=== PATIENT | male | born 1975 | race Caucasian/White ===

== ENCOUNTER 2018-01-31 14:33 | Emergency (ER) | payer SELFPAY ==
[~2018-01-31] VITALS: Ht 170.2 cm; Wt 75.0 kg
[2018-01-31 15:06] LABS: BASOPHILS % 0.5 % (0.0-2.0); EOSINOPHILS % 1.7 % (0.0-5.0); HEMATOCRIT. 42.7 % (42.0-52.0); HEMOGLOBIN. 14.8 g/dL (14.0-18.0); MEAN CORPUSCULAR HEMOGLOBIN 30.9 pg (28.0-32.0); MEAN CORPUSCULAR VOLUME 89.2 fL (80.0-94.0); MEAN PLATELET VOLUME 9.3 fl (7.4-10.4); MONOCYTES % 9.4 % (2.0-8.0); NEUTROPHILS % 64.4 % (40.0-76.0); PLATELET 205 x1000/uL (130-400); RED BLOOD CELL COUNT 4.79 mill/uL (4.7-6.1); RED CELL DISTRIBUTION WIDTH 13.5 % (11.6-14.6)
[2018-01-31 15:12] LABS: PROTHROMBIN TIME 10.2 sec (9.4-11.6)
[2018-01-31 16:05] VITALS: BP 121/88
== END 2018-01-31 18:23 | disposition home or self-care (01) ==
LOC: ER 18:20
DX: R04.0 Epistaxis (principal)
CPT/HCPCS: 36415; 85025; 85610; 85730; 99284